=== PATIENT | female | born 1980 ===

== ENCOUNTER 2024-10-26 06:18 | Day surgery (SDC) | payer BC, SELFPAY | END 2024-10-26 14:19 | disposition home or self-care (01) | LOC: GI 06:18 | PROVIDERS: ATTENDING PHYSICIAN Internal Medicine Gastroenterology | DX: Z12.11 Encounter for screening for malignant neoplasm of colon (principal); K64.8 Other hemorrhoids; K50.10 Crohn's disease of large intestine without complications; K63.89 Other specified diseases of intestine | CPT/HCPCS: 45385; 45380; 88305 ==